=== PATIENT | female | born 1980 | race Caucasian/White ===

== ENCOUNTER 2020-11-01 01:33 | Emergency (ER) | payer BC ==
[~2020-11-01] VITALS: Ht 157.4 cm; Wt 94.3 kg
[2020-11-01] MEDS ORDERED: TRILEPTAL300 MG PO (01:58)
[2020-11-01] MEDS ORDERED: BUPROPION HCL150 M3 PO (01:59)
[2020-11-01] MEDS ORDERED: BENADRYL ALLERG25 M5 PO (02:00)
[2020-11-01] MEDS ORDERED: LAMICTAL200 MG PO (02:00)
[2020-11-01] MEDS ORDERED: IRON325 M1 PO (02:01)
== END 2020-11-01 05:41 | disposition home or self-care (01) ==
LOC: ED 01:33
DX: S03.02XA Dislocation of jaw, left side, initial encounter (principal); Z79.899 Other long term (current) drug therapy; X50.1XXA Overexertion from prolonged static or awkward postures, initial encounter; Y93.84 Activity, sleeping; Y92.89 Other specified places as the place of occurrence of the external cause; Y99.8 Other external cause status

== ENCOUNTER 2020-12-25 11:26 | Emergency (ER) | payer SELFPAY ==
[~2020-12-25] VITALS: Ht 160 cm; Wt 99.8 kg
[~2020-12-25 11:26] MED LIST: BENADRYL ALLERG25 M5 PO; BUPROPION HCL150 M3 PO; IRON325 M1 PO; LAMICTAL200 MG PO; TRILEPTAL300 MG PO
== END 2020-12-25 21:28 | disposition left against medical advice (07) ==
LOC: ED 11:26
DX: S61.452A Open bite of left hand, initial encounter (principal); Z53.21 Procedure and treatment not carried out due to patient leaving prior to being seen by health care provider; W54.0XXA Bitten by dog, initial encounter; Y93.89 Activity, other specified; Y99.8 Other external cause status; Y92.89 Other specified places as the place of occurrence of the external cause

== ENCOUNTER → 2022-03-10 | Outpatient (CLI) | payer BC | END | disposition home or self-care (01) | LOC: RAD 07:58 | PROVIDERS: ATTEND Surgery | DX: Z01.818 Encounter for other preprocedural examination (principal); Z98.84 Bariatric surgery status ==

== ENCOUNTER 2023-09-13 11:15 | Emergency (ER) | payer MEDICAID ==
[~2023-09-13] VITALS: Ht 160 cm; Wt 83.9 kg
[2023-09-13] MEDS ORDERED: PENICILLIN VK500 MG PO (11:40)
[2023-09-13] MEDS ORDERED: Lidocaine Hydrochloride 15 ML UDC PO STA (11:41)
[2023-09-13] MEDS ORDERED: BENZOCAINE 20% 11.9 GM GEL T STA (11:41)
== END 2023-09-13 12:05 | disposition home or self-care (01) ==
LOC: ED 11:15
DX: K02.9 Dental caries, unspecified (principal); R60.0 Localized edema; Z79.899 Other long term (current) drug therapy

== ENCOUNTER 2023-09-13 21:11 | Emergency (ER) | payer MEDICAID ==
[~2023-09-13] VITALS: Ht 167.6 cm; Wt 68.0 kg
[~2023-09-13 21:11] MED LIST changes: +PENICILLIN VK500 MG PO
[2023-09-13] MEDS ORDERED: Ampicillin Sodium/Sulbactam 3 GM in SODIUM CHLORIDE 0.9% 100 ML IV ONE (22:20)
[2023-09-13] MEDS ORDERED: Dexamethasone Sodium Phospha 20 MG/5 ML VIAL IV ONE (22:20)
[2023-09-13 22:50] LABS: BASO # 0.1 10*3/uL (0.0-0.1); BASO % 0.6 % (0.0-1.0); EOS # 0.5 10*3/uL (0.0-0.4); EOS % 3.7 % (1.0-4.0); LYMPH # 1.8 10*3/uL (1.3-4.4); LYMPH % 14.1 % (27.0-41.0); MEAN CELL VOLUME 91.3 fl (81.0-99.0); MEAN CORPUSCULAR HGB 29.4 pg (27.0-31.0); MEAN CORPUSCULAR HGB CONC 32.2 g/dl (33.0-37.0); MEAN PLATELET VOLUME 9.3 fl (9.6-12.3); MONO % 7.7 % (3.0-9.0); NEUT # 9.4 10*3/uL (2.3-7.9); NEUT % 73.7 % (47.0-73.0); PLATELET COUNT AUTOMATED 293 10*3/uL (130-400); RED BLOOD COUNT 4.49 10*6/uL (4.10-5.10); RED CELL DISTRI WIDTH 12.2 % (0-14.5); WHITE BLOOD COUNT 12.7 10*3/uL (4.8-10.8)
[2023-09-13 23:11] LABS: ALKALINE PHOSPHATASE 67 U/L (46-116); BUN 17 mg/dl (9-23); CHLORIDE 105 mmol/L (98-107); POTASSIUM 3.9 mmol/L (3.4-5.1); SGPT/ALT 8 U/L (5-49); TOTAL PROTEIN 6.8 gm/dL (6.0-8.0)
== END 2023-09-14 00:58 | disposition short-term general hospital (02) ==
LOC: ED 21:11
PROVIDERS: Emergency Medicine
DX: K12.2 Cellulitis and abscess of mouth (principal)